=== PATIENT | female | born 1985 | race Caucasian/White ===

== ENCOUNTER 2018-02-04 09:58 | Emergency (ER) | payer OTHER ==
[~2018-02-04] VITALS: Ht 157.5 cm; Wt 72.6 kg
[~2018-02-04 09:58] MED LIST: BACTRIM DS TAB1 EACH PO; BENTYL 10 MG CA10 M1 PO; CARAFATE 1 GM TA1 G1 PO; CIPRO; CIPRO500 MG PO; CIPROFLOXACIN500 M1 PO; COLACE100 MG PO; COLESTID; HYDROCODON-ACE1 EAC7 PO; IBUPROFEN 200200 M1 PO; IMODIUM MULTI-1 EACH PO; KEFLEX500 MG; LOPERAMIDE 2 MG2 M1 PO; NITROFURANTOIN100 MG; NORCO 5-325 TA1 EACH PO; ONDANSETRON HCL4 M2 PO; PHENAZOPYRIDIN200 M2 PO; PRENATAL PO; TL-FOL 500 CAP1 EACH; ZANTAC 150MG T150 MG PO; ZOFRAN ODT4 MG PO; ZOFRAN4 MG PO
[2018-02-04 10:17] LABS: ABSOLUTE BASOPHILS 0.1 thou/uL (0.0-0.2); ABSOLUTE EOSINOPHILS 0.1 thou/uL (0.0-0.7); ABSOLUTE LYMPHOCYTES 1.7 thou/uL (0.8-5.3); ABSOLUTE MONOCYTES 0.3 thou/uL (0.0-1.2); BASOPHILS 2.4 %; EOSINOPHILS 2.2 %; HEMATOCRIT 39.1 % (37.0-47.0); HEMOGLOBIN 13.2 gm/dL (12.0-15.0); LYMPHOCYTES 31.8 %; MCH 31.7 pg (26.0-34.0); MCHC 33.7 g/dL (28.0-37.0); MCV 94.2 fL (80.0-100.0); MONOCYTES 6.4 %; MPV 6.6 fl. (7.2-11.1); NUCLEATED RBCS 0 /100WBC; PLATELET COUNT* 155 thou/uL (150-400); POLYS 57.2 %; RBC 4.15 mil/uL (4.20-5.00); RDW-CV 18.6 % (10.5-14.5); WBC 5.3 thou/uL (4.0-11.0)
[2018-02-04] MEDS ORDERED: COLESTID1 GM PO (10:17)
[2018-02-04] MEDS ORDERED: PRILOSEC 20 MG20 MG PO (10:17)
[2018-02-04 10:29] LABS: APTT 26.6 Seconds (25.0-31.3); INR 1.3; PROTIME 12.3 Seconds (9.20-11.50)
[2018-02-04 10:47] LABS: ANION GAP 7 mmol/L (7-16); BUN 3 mg/dL (7-18); CALCIUM 8.8 mg/dL (8.5-10.1); CHLORIDE 101 mmol/L (98-107); CO2 29 mmol/L (21-32); CREATININE 0.5 mg/dL (0.6-1.3); GLUCOSE 107 mg/dL (70-99); POTASSIUM 3.2 mmol/L (3.5-5.1); SODIUM 137 mmol/L (136-145)
[2018-02-04 10:52] LABS: ALBUMIN 3.2 g/dL (3.4-5.0); ALKALINE PHOSPHATASE 244 U/L (46-116); CK-MB MASS 0.8 ng/mL (<0.5-3.6); LIPASE 178 U/L (73-393); MAGNESIUM 1.5 mg/dL (1.8-2.4); NT-PRO BRAIN NAT PEPTIDE 166 pg/mL (<300); SGOT 183 U/L (15-37); SGPT 68 U/L (30-65); TOTAL BILIRUBIN 1.6 mg/dL (<0.1-1.0); TOTAL PROTEIN 8.1 g/dL (6.4-8.2); TROPONIN-I LEVEL <0.06 ng/mL (<0.06)
[2018-02-04 11:10] VITALS: BP 129/75
--- NOTE | 2018-02-06 11:31 | EKG ---
[place] [address] ELECTROCARDIOGRAM REPORT Name: GONZALEZ HERNANDEZ Room: [facility]#: [id number] Admission: 02/04/18 Attend Phys: Discharge: 02/04/18 Date of : 83 Report #: [id number] THIS REPORT FOR: //name// [facility] ED Test Date: 2018-02-04 Test Time: 10:02:27 Pat Name: GONZALEZ HERNANDEZ Department: Room: Gender: F Environmental [employer]: : 1985 Requested By: Gus Patel Order Number: [id number] MD: Percy Lo Measurements Intervals [place] Rate: 82 P: 36 AR: 130 QRS: 20 QRSD: 92 T: 9 QT: 367 QTc: 429 Interpretive Statements Sinus rhythm Borderline T abnormalities, anterior leads Baseline wander in lead(s) I,II,aVR Compared to ECG 07/07/2015 23:06:13 rate slowed Electronically Signed On 02-06-2018 11:31:04 CDT by Percy Lo [email or web address] <ELECTRONICALLY SIGNED> By: Percy Lo MD, [facility] 02/06/18 1131 1002 1002 Percy Lo MD, [facility] /EPI
== END 2018-02-04 11:10 | disposition home or self-care (01) ==
LOC: M.ERS 09:58
PROVIDERS: Family Medicine
DX: R07.89 Other chest pain (principal); F17.210 Nicotine dependence, cigarettes, uncomplicated; Z90.49 Acquired absence of other specified parts of digestive tract

== ENCOUNTER → 2018-03-30 | Outpatient (CLI) | payer OTHER ==
[~2018-03-30] MED LIST changes: +COLESTID1 GM PO; +PHENERGAN 25 MG25 M1 PO; +PRILOSEC 20 MG20 MG PO
== END ==
LOC: M.ULTRA 09:00
DX: K76.0 Fatty (change of) liver, not elsewhere classified (principal); R16.2 Hepatomegaly with splenomegaly, not elsewhere classified; Z87.891 Personal history of nicotine dependence

== ENCOUNTER 2018-05-02 07:51 | Emergency (ER) | payer OTHER ==
[~2018-05-02] VITALS: Ht 157.5 cm; Wt 78.6 kg
[~2018-05-02 07:51] MED LIST changes: -PHENERGAN 25 MG25 M1 PO
[2018-05-02] MEDS ORDERED: PHENERGAN 25 MG25 M1 PO (08:10)
[2018-05-02 08:16] LABS: ABSOLUTE EOSINOPHILS 0.1 thou/uL (0.0-0.7); ABSOLUTE LYMPHOCYTES 0.8 thou/uL (0.8-5.3); ABSOLUTE MONOCYTES 0.4 thou/uL (0.0-1.2); ABSOLUTE NEUTROPHILS 6.1 thou/uL (1.6-8.1); BASOPHILS 0.5 %; EOSINOPHILS 1.9 %; HEMATOCRIT 36.9 % (37.0-47.0); HEMOGLOBIN 12.2 gm/dL (12.0-15.0); LYMPHOCYTES 11.2 %; MCH 30.8 pg (26.0-34.0); MCHC 33.1 g/dL (28.0-37.0); MCV 93.1 fL (80.0-100.0); MONOCYTES 5.5 %; MPV 6.7 fl. (7.2-11.1); NUCLEATED RBCS 0 /100WBC; PLATELET COUNT* 116 thou/uL (150-400); POLYS 80.9 %; RBC 3.96 mil/uL (4.20-5.00); RDW-CV 19.6 % (10.5-14.5); WBC 7.6 thou/uL (4.0-11.0)
[2018-05-02 08:28] LABS: CREATININE 0.6 mg/dL (0.6-1.3); POTASSIUM 3.3 mmol/L (3.5-5.1)
[2018-05-02 08:32] LABS: ALBUMIN 2.8 g/dL (3.4-5.0); TOTAL BILIRUBIN 1.1 mg/dL (<0.1-1.0); TOTAL PROTEIN 8.1 g/dL (6.4-8.2)
[2018-05-02 09:26] VITALS: BP 122/65
== END 2018-05-02 09:28 | disposition home or self-care (01) ==
LOC: M.ERS 07:51
PROVIDERS: Family Medicine
DX: F10.129 Alcohol abuse with intoxication, unspecified (principal); R53.1 Weakness; E11.9 Type 2 diabetes mellitus without complications; Z90.49 Acquired absence of other specified parts of digestive tract; R10.9 Unspecified abdominal pain; G89.29 Other chronic pain; R19.7 Diarrhea, unspecified; F17.210 Nicotine dependence, cigarettes, uncomplicated

== ENCOUNTER → 2018-09-25 | Outpatient (CLI) | payer OTHER ==
[~2018-09-25] MED LIST changes: +PHENERGAN 25 MG25 M1 PO
[2018-09-25 08:01] LABS: ABSOLUTE EOSINOPHILS 0.1 thou/uL (0.0-0.7); ABSOLUTE LYMPHOCYTES 1.7 thou/uL (0.8-5.3); ABSOLUTE MONOCYTES 0.4 thou/uL (0.0-1.2); ABSOLUTE NEUTROPHILS 4.5 thou/uL (1.6-8.1); BASOPHILS 0.4 %; EOSINOPHILS 1.8 %; HEMATOCRIT 28.9 % (37.0-47.0); HEMOGLOBIN 9.6 gm/dL (12.0-15.0); LYMPHOCYTES 25.3 %; MCH 31.8 pg (26.0-34.0); MCHC 33.3 g/dL (28.0-37.0); MCV 95.5 fL (80.0-100.0); MONOCYTES 6.4 %; MPV 7.5 fl. (7.2-11.1); NUCLEATED RBCS 0 /100WBC; PLATELET COUNT* 124 thou/uL (150-400); POLYS 66.1 %; RBC 3.03 mil/uL (4.20-5.00); RDW-CV 18.8 % (10.5-14.5); WBC 6.7 thou/uL (4.0-11.0)
[2018-09-25 08:10] LABS: INR 1.7; PROTIME 16.9 Seconds (9.20-11.50)
[2018-09-25 08:11] LABS: ALBUMIN 1.8 g/dL (3.4-5.0); CALCIUM 8.3 mg/dL (8.5-10.1); CREATININE 0.7 mg/dL (0.6-1.3); POTASSIUM 3.2 mmol/L (3.5-5.1); TOTAL BILIRUBIN 3.4 mg/dL (<0.1-1.0); TOTAL PROTEIN 7.2 g/dL (6.4-8.2)
== END ==
LOC: M.MRI 07:33 → M.LAB 07:33 → M.MRI 08:30
PROVIDERS: Internal Medicine Gastroenterology
DX: K76.0 Fatty (change of) liver, not elsewhere classified (principal); R16.2 Hepatomegaly with splenomegaly, not elsewhere classified; K74.60 Unspecified cirrhosis of liver; R18.8 Other ascites; I85.00 Esophageal varices without bleeding; Z90.49 Acquired absence of other specified parts of digestive tract

== ENCOUNTER → 2019-06-11 | Outpatient (CLI) | payer OTHER | LOC: M.ULTRA 08:42 | DX: K74.60 Unspecified cirrhosis of liver (principal); K76.0 Fatty (change of) liver, not elsewhere classified; R16.2 Hepatomegaly with splenomegaly, not elsewhere classified ==

== ENCOUNTER → 2019-12-06 | Day surgery (SDC) | payer OTHER ==
[~2019-12-06] MED LIST changes: +LEVSIN-SL0.125 MG SUBLING; +MULTIVITAMINS1 EAC6 PO; +VITAMIN D21250 MC1 PO
== END | disposition home or self-care (01) ==
LOC: M.SUR 07:20
DX: R12 Heartburn (principal); I85.00 Esophageal varices without bleeding; K76.6 Portal hypertension; K31.89 Other diseases of stomach and duodenum; K44.9 Diaphragmatic hernia without obstruction or gangrene; K21.9 Gastro-esophageal reflux disease without esophagitis; Z98.890 Other specified postprocedural states; Z79.899 Other long term (current) drug therapy

== ENCOUNTER → 2021-06-10 | Outpatient (CLI) | payer OTHER | LOC: M.NUC 05-13 15:52 | PROVIDERS: ATTEND Nurse Practitioner Family | DX: R11.0 Nausea (principal) ==

== ENCOUNTER → 2021-07-20 | Outpatient (CLI) | payer OTHER | LOC: M.LAB 14:48 | PROVIDERS: ATTEND Internal Medicine Gastroenterology | DX: Z01.812 Encounter for preprocedural laboratory examination (principal); Z20.822 Contact with and (suspected) exposure to COVID-19 ==